=== PATIENT | female | born 2000 | race Hispanic/Latino ===

== ENCOUNTER 2021-03-23 15:36 | Emergency (ER) | payer SELFPAY ==
--- NOTE | ~2021-03-23 | XR_ITS ---
EXAMINATION: XR chest 2V DATE: 03/23/2021 15:58 INDICATION: Chest pain TECHNIQUE: frontal and lateral views of the chest were obtained. COMPARISON: None FINDINGS: The lungs are clear with no focal airspace opacities, pulmonary edema, pleural effusion or pneumothor ax. The cardiomediastinal silhouette is normal. Cholecystectomy clips in right upper quadrant. IMPRESSION: 1. No acute cardiopulmonary disease. Reviewed, dictated and finalized at location A.
[2021-03-23 15:50] VITALS: BP 120/84; PULSE 78; RESP 16; TEMP 36.4; O2SAT 100
--- NOTE | 2021-03-23 16:06 | ECG_ITS ---
Measurements Intervals [place] Rate: 66 P: 56 FL: 142 QRS: 75 QRSD: 90 T: 38 QT: 371 QTc: 391 Interpretive Statements SINUS RHYTHM POSSIBLE LEFT ATRIAL ENLARGEMENT INCOMPLETE RIGHT BUNDLE BRANCH BLOCK MINIMAL Q WAVES- INFERIOR LEADS BASELINE ARTIFACT- II, III, AVF BORDERLINE ECG Electronically Signed On 03-23-2021 20:12:49 CDT by Matt Lockhart D.O.
--- NOTE | 2021-03-23 16:31 | ED.CHESTPAIN ---
HPI - Chest Pain General Chief Complaint: Chest Pain Stated Complaint: Chest Pain Time Seen by Provider: 03/23/21 16:31 Source: patient Mode of arrival: ambulatory Limitations: no limitations History of Present Illness HPI narrative: Whitney Yao is a 21 yo female who comes to [facility] with no prior medical condition with complaints of chest wall pain that started a couple weeks ago. She states that it just came out of nowhere today while she was sitting in the couch watching TV. She has no shortness of breath no diaphoresis no cardiac history no history of sudden in family Related Data Allergies Allergy/AdvReac Type Severity Reaction Status Date / Time No Known Allergies Allergy Verified 03/23/21 16:14 Review of Systems Review of Systems: CONSTITUTIONAL: Denies fever, chills, sweats. EYES: Denies visual changes, redness, discharge. ENT: Denies rhinorrhea, congestion, sore throat, otalgia. CARDIOVASCULAR: Denies chest pain, palpitations, edema. Chest wall pain RESPIRATORY: Denies dyspnea, wheezing, cough GASTROINTESTINAL: Denies abdominal pain, nausea, vomiting, diarrhea. GENITOURINARY: Denies dysuria, hematuria, abnormal discharge SKIN: Denies rash or itching. NEUROLOGIC: Denies numbness, or focal weakness. PSYCHIATRIC: Denies anxiety or depression. PMFSH Past Medical History Medical History No acute medical problems Family History Family History Other Diabetes mellitus Family history of elevated blood lipids Social History Social History Smoking status: Never smoker Alcohol intake: never Comments At time of signature, I agree with nursing past medical, surgical, social and family history. There is no relevant family history pertinent to the presenting complaint. Exam Narrative: GENERAL: This is a well-nourished, well-developed patient, in mild distress. HEAD: normocephalic, atraumatic. EYES: Sclera clear/white. Vision is grossly intact. EARS: External ears normal, Hearing grossly intact. NOSE: External nose normal without nasal discharge, nares without redness, no rhinorrhea. THROAT: Mucous membranes moist, NECK: Neck supple, CARDIOVASCULAR: Regular rate and rhythm without murmurs, gallops, or rubs. RESPIRATORY: Clear to auscultation. Breath sounds equal bilaterally. No wheezes, rales, or rhonchi. Chest wall tenderness under left breast and midsternal painful when with pressure or palpation; pain with movement of her arm overhead painful when she lays flat GASTROINTESTINAL: Abdomen soft, SKIN: warm, intact with no suspicious lesions or rash, good texture and turgor. NEURO: awake, alert, and oriented to person, place and time. There were no obvious focal neurologic abnormalities. Steady gait EXTREMITIES: Normal range of motion. BACK: Nontender without deformity Course Course Emergency Course: [facility] complaining of chest wall tenderness EKG is borderline- normal heart rate is 66, Q T is 371, no prolongation no axis deviation P waves inverted in V1 and V2; T wave abnormality Chest x-ray shows no acute cardiopulmonary disease there is no pulmonary edema no pleural effusion no pneumothorax the cardiomediastinal silhouette is normal she has cholecystectomy clips in the right upper quadrant Started baclofen and high-dose ibuprofen she is to follow-up with the emergency room if she continues to have chest pain or shortness of breath or pain intensifies Vital Signs Vital signs: Vital Signs Temperature 97.6 F 03/23/21 15:50 Pulse Rate 78 03/23/21 15:50 Respiratory Rate 16 03/23/21 15:50 Blood Pressure 120/84 03/23/21 15:50 Pulse Oximetry 100 03/23/21 15:50 Temperature 97.6 F 03/23/21 15:50 Pulse Rate 78 03/23/21 15:50 Respiratory Rate 16 03/23/21 15:50 Blood Pressur
== END 2021-03-23 16:40 | disposition home or self-care (01) ==
PROVIDERS: Emergency Provider Nurse Practitioner
DX: M94.0 Chondrocostal junction syndrome [Tietze] (principal); I45.10 Unspecified right bundle-branch block; R94.31 Abnormal electrocardiogram [ECG] [EKG]
CPT/HCPCS: 71046; 93005; 99204; G0463

== ENCOUNTER 2022-06-21 13:53 | Emergency (ER) | payer SELFPAY ==
[2022-06-21] VITALS (20 sets, daily range): BP systolic 108–132; BP diastolic 69–94; PULSE 69–89; RESP 9–16; TEMP 36.4–36.8; O2SAT 95–100
--- NOTE | ~2022-06-21 | XR_ITS ---
EXAMINATION: XR chest 1V portable DATE: 06/21/2022 14:31 INDICATION: Cough and shortness of breath. TECHNIQUE: A single frontal view of the chest was obtained. COMPARISON: Chest 2 views 03/23/2021 FINDINGS: The chest demonstrates clear lungs without pneumonia, pleural effusion, or pneumothorax. Th e heart size is normal. Surgical clips in the right upper quadrant are likely from cholecystectomy. IMPRESSION: 1. No acute cardiopulmonary disease. Reviewed, dictated and finalized at location A. [employer]
--- NOTE | 2022-06-21 14:22 | ECG_ITS ---
Measurements Intervals [place] Rate: 66 P: 53 HI: 135 QRS: 63 QRSD: 89 T: 34 QT: 386 QTc: 404 Interpretive Statements SINUS RHYTHM POSSIBLE LEFT ATRIAL ENLARGEMENT INCOMPLETE RIGHT BUNDLE BRANCH BLOCK BASELINE ARTIFACT- II, III, AVF BORDERLINE ECG NO PREVIOUS ECG AVAILABLE FOR COMPARISON Electronically Signed On 06-21-2022 15:01:05 CHARGE RN by Matt Lockhart D.O.
--- NOTE | 2022-06-21 14:23 | ED.URI ---
HPI - URI/Sore Throat General Chief Complaint: Upper Respiratory Infection Stated Complaint: positive covid test, chest pain and back pain Time Seen by Provider: 06/21/22 14:09 History of Present Illness HPI Narrative: Patient is a 22-year-old female presenting with chest and back pain. Patient states that she tested positive for COVID-19 approximately 3 to 4 days ago. Since that time she has had a worsening cough and she now has upper back pain that radiates into her chest. States it is worse with deep breathing. States that she also has mild dyspnea. Patient states that she has also been unable to keep down solids for the last several days. States that she has been able to keep down water. She denies headache, fevers, lightheadedness, abdominal pain, diarrhea, dysuria, leg swelling. Related Data Allergies Allergy/AdvReac Type Severity Reaction Status Date / Time No Known Allergies Allergy Verified 03/23/21 16:14 Review of Systems Review of Systems: All systems reviewed & are unremarkable except as noted in HPI and below PMFSH Past Medical History Medical History No acute medical problems Family History Family History Other Diabetes mellitus Family history of elevated blood lipids Social History Social History Smoking status: Never smoker Alcohol intake: never Exam Narrative: GENERAL: Well-appearing, well-nourished, and in no acute distress. HEAD: Normocephalic, atraumatic. EYES: PERRLA and EOMI. ENT: +nasal congestion, no rhinorrhea or epistaxis. Mucous membranes moist. NECK: Supple. CHEST: Clear to auscultation. No respiratory distress. HEART: Regular rate and rhythm. No murmur heard. Normal peripheral pulses. ABDOMEN: Soft, nontender, nondistended EXTREMITIES: Normal range of motion. No edema. SKIN: Warm, dry, no rash. NEURO: No focal deficits. Alert and oriented x3. PSYCH: Normal mood and affect. Course Vital Signs Vital signs: Vital Signs Temperature 97.6 F 06/21/22 14:07 Pulse Rate 80 06/21/22 14:07 Respiratory Rate 12 06/21/22 14:07 Blood Pressure 111/87 06/21/22 14:07 Pulse Oximetry 99 06/21/22 14:07 Oxygen Delivery Room Air 06/21/22 14:07 Temperature 98.3 F 06/21/22 17:05 Pulse Rate 74 06/21/22 17:05 Respiratory Rate 13 06/21/22 17:05 Blood Pressure 122/69 06/21/22 17:05 Pulse Oximetry 99 06/21/22 17:05 Oxygen Delivery Room Air 06/21/22 14:07 MDM - URI/Sore Throat MDM Narrative Medical decision making narrative: Patient is a 22-year-old female presenting with chest and back pain in the setting of recent COVID diagnosis. Vitals are within normal limits. Patient is nontoxic and in no acute distress. Exam is remarkable for the above. EKG per my interpretation shows normal sinus rhythm, normal axis, incomplete RBBB, no ST elevations or depressions. Blood work is unremarkable. D-dimer within normal limits. Chest x-ray without acute abnormalities per my review. Discussed the reassuring work-up. Recommended appropriate supportive care. Advised PCP follow-up. Appropriate return precautions given. Patient voiced understanding and is agreeable with plan. Discharged in stable condition. Differential Diagnosis Differential diagnosis: Likely upper respiratory infection, sinusitis, viral infection, bronchitis, influenza and other (COVID, PE, costochondritis ) Lab Data 06/21/22 14:32 06/21/22 14:32 Labs: Lab Results 06/21/22 06/21/22 06/21/22 Range/Units 14:32 14:32 14:32 WBC 8.3 (4.5-10.0) K/mm3 RBC 5.26 (4.2-5.4) M/mm3 Hgb 14.6 (12.0-15.0) g/dL Hct 42.8 (37.0-47.0) % MCV 81.4 (80-100) fl MCH 27.8 (26-34) pg MCHC 34.1 (32-36) g/dl RDW 11.5 (11.5-14.5) % Plt Count 401 H (150-375) k/mm3 MPV
[2022-06-21 14:56] LABS: Basophils Percent Auto 0.4 % (0.2-1.2); Eosinophils Percent Auto 0.5 % (0-4.4); Hematocrit 42.8 % (37.0-47.0); Hemoglobin 14.6 g/dL (12.0-15.0); Immature Granulocyte Absolute 0.03 K/mm3 (0.00-0.031); Immature Granulocyte Percent A 0.4 % (0-0.5); Lymphocytes Absolute Auto 3.82 K/mm3 (0.9-3.2); Lymphocytes Percent Auto 46.1 % (18.3-44.2); Mean Corpuscular HGB Conc 34.1 g/dl (32-36); Mean Corpuscular Hemoglobin 27.8 pg (26-34); Mean Corpuscular Volume 81.4 fl (80-100); Mean Platelet Volume 9.5 fl (7.4-10.4); Monocytes Absolute Auto 0.5 K/mm3 (0.1-0.6); Monocytes Percent Auto 5.9 % (2.6-8.5); Neutrophils Absolute Auto 3.9 K/mm3 (1.3-6.7); Neutrophils Percent Auto 46.7 % (45.5-73.1); Platelet Count Result 401 k/mm3 (150-375); Red Blood Count 5.26 M/mm3 (4.2-5.4); Red Cell Distribution Width 11.5 % (11.5-14.5); White Blood Count 8.3 K/mm3 (4.5-10.0)
[2022-06-21 14:56] LABS: Add Urine Microscopic? NO; Appearance Urine Clear (Clear); Bilirubin Urine Negative (Negative); Blood Urine Negative (Negative); Color Urine Yellow (Yellow); Glucose Urine UA Negative (Negative); Ketones Urine Negative (Negative); Leukocyte Esterase Ur Negative LEU/UL (Negative); Nitrate Urine Negative (Negative); Protein Urine Negative (Negative); Specific Grav Ur 1.015 (1.001-1.035); Urobilinogen Urine 0.2 mg/dL (<2.0); pH Urine 8.5 (5.0-9.0)
[2022-06-21] MEDS: SODIUM CHLORIDE 0.9% IV 1,000 ML 999 ML IV CONT (15:01)
[2022-06-21] MEDS: ONDANSETRON INJ 4 MG/2 ML VIAL IV PUSH (15:01)
[2022-06-21 15:10] LABS: Alanine Aminotransferase 26 U/L (6-35); Albumin Level 4.8 g/dL (3.5-5.1); Alkaline Phosphatase 105 U/L (38-126); Anion Gap 10 mmol/L (8-16); Aspartate Amino Transferase 24 U/L (14-36); Bilirubin,Total 0.5 mg/dL (0.2-1.3); Blood Urea Nitrogen 10 mg/dL (7-17); Calcium 9.1 mg/dL (8.4-10.2); Carbon Dioxide 26 mmol/L (22-30); Chloride 102 mmol/L (98-107); Estimated CRCL calculation 172 ml/min; Estimated Glomerular Filt Rate > 60; Glucose 97 mg/dL (65-110); Lipase 50 U/L (23-300); Potassium 3.8 mmol/L (3.4-5.0); Sodium 138 mmol/L (137-145)
[2022-06-21 15:15] LABS: D Dimer 0.37 ug/mL (<0.48)
[2022-06-21 15:33] LABS: Influenza A QL RT-PCR Negative (Negative); Influenza B QL RT-PCR Negative (Negative); RSV RNA, RT-PCR Negative (Negative); SARS-CoV-2 RNA PCR Positive
== END 2022-06-21 17:10 | disposition home or self-care (01) ==
PROVIDERS: Emergency Provider Emergency Medicine
DX: U07.1 COVID-19 (principal); M54.6 Pain in thoracic spine; I45.10 Unspecified right bundle-branch block; R94.31 Abnormal electrocardiogram [ECG] [EKG]
CPT/HCPCS: 36415; 71045; 80053; 81003; 81025; 83690; 85025; 85380; 87637; 93005; 96361; 96374; 96375; 99284; J0131; J2405; J7030